=== PATIENT | male | born 1980 | race Two or more races ===

== ENCOUNTER 2024-08-10 23:11 | Inpatient (IN) | payer OTHER ==
[~2024-08-10] VITALS: Ht 170.2 cm; Wt 79.5 kg
[2024-08-11] MEDS: DiphenhydrAMINE HCL 25 MG CAPSULE PO ONE (01:47)
[2024-08-11] MEDS: LORazepam 2 MG/ML VIAL IM ONE (01:47)
[2024-08-11] MEDS: ACETAMINOPHEN 500 MG TABLET PO ONE (01:56)
[2024-08-11] MEDS ORDERED: BACLOFEN 10 MG TABLET PO PRN (02:30)
[2024-08-11] MEDS ORDERED: ACETAMINOPHEN 325 MG TABLET PO PRN ×2 (02:30)
[2024-08-11] MEDS ORDERED: PROMETHAZINE HCL 25 MG TABLET PO PRN (02:30)
[2024-08-11] MEDS ORDERED: ALBUTEROL SULFATE 2.5 MG/0.5 ML NEB SOLUTION NEB PRN (02:30)
[2024-08-11] MEDS ORDERED: IPRATROPIUM BROMIDE 0.5 MG/2.5 ML NEB SOLUTION NEB PRN (02:30)
[2024-08-11] MEDS ORDERED: LOPERAMIDE HCL 2 MG/15 ML SUSPENSION UDCUP PO PRN (02:30)
[2024-08-11] MEDS ORDERED: DICYCLOMINE HCL 10 MG CAPSULE PO PRN (02:30)
[2024-08-11] MEDS ORDERED: ONDANSETRON HCL 4 MG/2 ML VIAL IVP PRN (02:30)
[2024-08-11] MEDS ORDERED: TraZODone HCL 50 MG TABLET PO PRN (02:30)
[2024-08-11] MEDS ORDERED: BISACODYL 10 MG RECTAL RECTAL SUPPOSITORY PR PRN (02:30)
[2024-08-11] MEDS ORDERED: CloNIDine HCL 0.1 MG TABLET PO PRN (02:30)
[2024-08-11] MEDS ORDERED: MAG HYDROX/ALUMINUM HYD/SIMETH ES 30 ML SUSPENSION UDCUP PO PRN (02:30)
[2024-08-11] MEDS ORDERED: MAGNESIUM HYDROXIDE SUSPENSION 30 ML UDCUP PO PRN (02:30)
[2024-08-11 02:36] LABS: BASOPHILS % (AUTO) 0.7 % (0.0-2.0); EOSINOPHILS % (AUTO) 0.5 % (1.0-6.0); HEMATOCRIT 36.5 % (41-53); HEMOGLOBIN 12.2 g/dL (13.5-17.5); LYMPHOCYTES # (AUTO) 2.6 K/uL (1.0-4.8); MEAN CORPUSCULAR HEMOGLOBIN 28.9 pg (26.0-34.0); MEAN CORPUSCULAR HGB CONC 33.5 G/dL (31.0-37.0); MEAN CORPUSCULAR VOLUME 86 fL (80-100); MONOCYTES # (AUTO) 0.6 K/uL (0.1-1.0); NEUTROPHILS # (AUTO) 5.4 K/uL (1.8-7.7); NEUTROPHILS % (AUTO) 61.8 % (40.0-70.0); PLATELET COUNT (AUTO) 247 K/uL (150-450); RED BLOOD CELL COUNT(AUTO) 4.23 MIL/uL (4.50-5.90); RED CELL DISTRIBUTION WIDTH 14.9 % (11.5-14.5); WHITE BLOOD COUNT (AUTO) 8.7 K/uL (4.5-11.0)
[2024-08-11 02:47] LABS: ANION GAP 10 mmol/L (8-16); CALCIUM, TOTAL 8.4 mg/dL (8.8-10.5); CARBON DIOXIDE 26 mmol/L (22-29); CHLORIDE 103 mmol/L (98-107); CREATININE 0.88 mg/dL (0.60-1.30); GLOMERULAR FILTR. RATE CALC > 60 mL/min (>60); GLUCOSE,RANDOM 100 mg/dL (70-110); POTASSIUM 3.9 mmol/L (3.5-5.1); SODIUM SERUM 139 mmol/L (136-145); UREA NITROGEN, BLOOD 8 mg/dL (7-18)
[2024-08-11] MEDS: SODIUM CHLORIDE 0.45% 1,000 ML IV SCH (02:56)
[2024-08-11 03:21] LABS: ALCOHOL, BLOOD (SERUM) < 3 mg/dL (0-10)
[2024-08-11 04:23] VITALS: BP 138/90; PULSE 70; RESP 18; TEMP 98.2; O2SAT 97
[2024-08-11] MEDS: PANTOPRAZOLE SODIUM 40 MG DR TABLET PO SCH (09:04)
[2024-08-11] MEDS: HEPARIN SODIUM,PORCINE 5,000 UNITS/ML VIAL SQ SCH (09:04)
[2024-08-11 09:08] VITALS: BP 146/88; PULSE 66; RESP 18; TEMP 98.5; O2SAT 100
[2024-08-11 16:54] LABS: ALCOHOL, URINE DRUG SCREEN NEGATIVE (NEGATIVE); AMPHET/METH SCREEN,URINE NEGATIVE (NEGATIVE); BARBITURATE SCREEN, URINE NEGATIVE (NEGATIVE); BENZODIAZEPINES SCREEN,URINE NEGATIVE (NEGATIVE); CANNABINOID SCREEN,URINE NEGATIVE (NEGATIVE); COCAINE SCREEN,URINE NEGATIVE (NEGATIVE); METHADONE SCREEN, URINE NEGATIVE (NEGATIVE); OPIATE SCREEN,URINE NEGATIVE (NEGATIVE); PHENCYCLIDINE SCREEN,URINE NEGATIVE (NEGATIVE)
[2024-08-11] MEDS: IBUPROFEN 600 MG TABLET PO PRN (19:52)
[2024-08-11] MEDS: LORazepam 1 MG TABLET PO PRN (19:53)
[2024-08-11 20:25] VITALS: BP 126/90; PULSE 74; RESP 18; TEMP 98.5; O2SAT 98
[2024-08-11] MEDS: ZOLPIDEM TARTRATE 5 MG TABLET PO PRN (23:35)
[2024-08-12 04:13] VITALS: BP 130/89; PULSE 74; RESP 18; TEMP 98.6; O2SAT 96
[2024-08-12] MEDS: HydrOXYzine PAMOATE 50 MG CAPSULE PO PRN (08:30)
[2024-08-12 15:21] VITALS: BP 110/74; PULSE 76; RESP 18; TEMP 99.3; O2SAT 97
[2024-08-12 19:52] VITALS: BP 130/66; PULSE 93; RESP 18; TEMP 98.5; O2SAT 95
[2024-08-13 04:41] VITALS: BP 123/90; PULSE 71; RESP 18; TEMP 98.3; O2SAT 96
[2024-08-13 09:35] VITALS: BP 133/81; PULSE 76; RESP 18; TEMP 98; O2SAT 98
[2024-08-13 19:54] VITALS: BP 112/83; PULSE 68; RESP 20; TEMP 98.3; O2SAT 99
[2024-08-14 04:26] VITALS: BP 141/95; PULSE 64; RESP 20; TEMP 98; O2SAT 97
[2024-08-14 08:00] VITALS: BP 139/90; PULSE 75; RESP 18; TEMP 98.1; O2SAT 98
[2024-08-14] MEDS ORDERED: ACETAMINOPHEN/CODEINE 300-30 MG TABLET PO PRN (10:30)
[2024-08-14] MEDS ORDERED: IBUP-1492 PO (10:51)
[2024-08-14] MEDS ORDERED: ACET-2247 PO (10:56)
== END 2024-08-14 15:25 | DRG 101 ==
LOC: EMS 23:12 → EDH 08-11 03:12 → 6S 08-11 04:18
PROVIDERS: ADMIT Hospitalist; ATTEND Hospitalist
DX: R56.9 Unspecified convulsions (principal); F11.93 Opioid use, unspecified with withdrawal; I10 Essential (primary) hypertension; F19.10 Other psychoactive substance abuse, uncomplicated; F15.90 Other stimulant use, unspecified, uncomplicated; M54.9 Dorsalgia, unspecified
CPT/HCPCS: 80048; 80307; 85025; 99285; G0480; J1644; J2060